=== PATIENT | male | born 1975 | race Caucasian/White ===

== ENCOUNTER 2017-02-25 21:19 | Emergency (ER) | payer OTHER | END 2017-02-26 00:40 | disposition home or self-care (01) | LOC: ER 21:19 | DX: S62.664B Nondisplaced fracture of distal phalanx of right ring finger, initial encounter for open fracture (principal); S62.666A Nondisplaced fracture of distal phalanx of right little finger, initial encounter for closed fracture; S00.90XA Unspecified superficial injury of unspecified part of head, initial encounter; Y04.8XXA Assault by other bodily force, initial encounter; R51 Headache; F32.9 Major depressive disorder, single episode, unspecified; Z79.899 Other long term (current) drug therapy; Z88.0 Allergy status to penicillin | CPT/HCPCS: 29280; 70450; 73130; 96372; 99283-25 ==

== ENCOUNTER 2017-03-02 08:11 | Emergency (ER) | payer OTHER | END 2017-03-02 09:06 | disposition home or self-care (01) | LOC: ER 08:11 | DX: M79.641 Pain in right hand (principal); B35.9 Dermatophytosis, unspecified; G89.29 Other chronic pain; Z88.0 Allergy status to penicillin | CPT/HCPCS: 29130; 99070; 99282 ==